=== PATIENT | female | born 1995 | race African-American/Black ===

== ENCOUNTER 2016-10-19 10:43 | Emergency (ER) | payer MEDICAID ==
[~2016-10-19] VITALS: Ht 160 cm; Wt 74.9 kg
[2016-10-19 10:48] VITALS: BP 122/80
== END 2016-10-19 11:30 | disposition home or self-care (01) ==
LOC: ED 10:43
DX: K12.2 Cellulitis and abscess of mouth (principal)

== ENCOUNTER 2017-10-01 12:02 | Emergency (ER) | payer OTHER ==
[~2017-10-01] VITALS: Ht 160 cm; Wt 77.1 kg
[2017-10-01 12:13] VITALS: Ht 160 cm; Wt 77.1 kg
[2017-10-01 12:43] VITALS: BP 114/70
== END 2017-10-01 12:43 | disposition home or self-care (01) ==
LOC: ED 12:02
DX: S71.012D Laceration without foreign body, left hip, subsequent encounter (principal); X58.XXXD Exposure to other specified factors, subsequent encounter